=== PATIENT | male | born 1985 | race Caucasian/White ===

== ENCOUNTER 2021-02-25 12:01 | Emergency (ER) | payer MEDICAID, SELFPAY ==
[2021-02-25 12:06] VITALS: BP 187/112; PULSE 77; RESP 20; TEMP 37.1; O2SAT 98
--- NOTE | 2021-02-25 12:15 | RT.EKG_ITS ---
APPROVED REPORT Exam: Resting ECG Patient Location: E HR:60 bpm ECG Measurements Heart Rate 60 AXIS KS 142 P 15 QRSd 102 QRS 72 QT 429 T 43 QTc 429 Conclusion Sinus rhythm...normal P axis, V-rate 60- 99
[2021-02-25] MEDS: OLANZapine 5 MG TAB PO (12:31)
[2021-02-25 12:47] LABS: Abs Immature Grans 0.01 10^3/uL (0.0-0.06); Absolute Basophil Count 0.02 10^3/uL (0.0-0.2); Absolute Lymphocyte Count 0.95 10^3/uL (1.2-3.4); Absolute Monocyte Count 0.28 10^3/uL (0.1-0.8); Basophils % 0.3; HCT 45.3 % (40.0-50.0); HGB 14.7 g/dL (13.5-17.5); Immature Grans % 0.2; Lymphocytes % 14.9; MCHC 32.5 % (32.0-36.0); MCV 83.3 fL (80-95); MPV 9.8 fL (8.0-11.0); Monocytes % 4.4; Neutrophils % 80.2; Nucleated RBC 0 %; Platelet Count 279 10^3/uL (130-400); RBC 5.44 10^6/uL (4.36-5.78); RDW 13.8 % (11.8-14.1); WBC 6.36 10^3/uL (4.4-10.8)
--- NOTE | 2021-02-25 12:52 | ED.GENADUL_ITS ---
Discharge Plan Discharge Details Chief Complaint: PsychEval Primary Care Provider: Kofi Barcenas ED Provider: Amber Corral Home Meds and New Rx's Prescriptions: No Action methylphenidate HCl [Ritalin] 20 mg Tablet 20 mg PO BID RF: 0 buprenorphine-naloxone [Suboxone] 2-0.5 mg Film 1 film BUCCAL DAILY RF: 0 Medical Decision Making Patient initially alert and oriented but very paranoid and tangential I did speak with his Alaina immediately upon arrival and she feels like the patient has become progressively more paranoid and she is worried about his safety He reportedly broke all of his guns in the house and called 911 for help She states that he feels as though family members are trying to harm him and that last evening he mentioned that he was going to kill her and then shoot himself to protect him She states that started approximately 2 weeks ago and has been escalating since discontinuing alcohol on the second Patient initially responded really well to Zyprexa and was resting comfortably in room, after consultation with mental health coordinator, Christen, patient became very agitated and was requesting to be discharged home As patient remained under voluntary status, we are unable to hold patient in the emergency room Please were notified and unfortunately patient was discharged into the community, he was ambulatory with steady gait at time of elopement from the hospital Given concerns for safety of staff in hospital, patient was not restrained Police notified regarding elopement at [address] Case management aware Differential Diagnosis Differential Diagnosis: Delusional, mood disorder, bipolar disorder, polysubstance abuse Medical Records Medical records reviewed: Yes I reviewed the patient's medical records. Lab Data Lab results reviewed: Yes I reviewed the patient's lab results. HPI This 35-year-old male presents with police for evaluation of paranoia and delirium. Patient reportedly stopped consuming alcohol on January 26 and for the past 3 weeks has been paranoid. Patient states that since his gallbladder surgery he is much more clear . He states he is never felt better but states that he thinks people are out to get him and his . He stated that his gave him some medication to help him sleep and he felt like she was poisoning him. states that he has been very paranoid, breaking all of his comments about people are unable to harm them not drinking the water because he states that it contains poison. denies any history of similar presentation in the past. There is no known history of mental health reportedly. Patient does have a history of alcohol abuse. He reportedly drinks 12-24 beers daily until January 26 when he stopped drinking abruptly. Both and patient deny any withdrawal symptoms. Patient smokes marijuana and does use Suboxone. He states that he has a history of oral opiate abuse. He denies any chest pain or shortness of breath. He denies auditory hallucinations. He denies any attempt to harm self today. He denies any thoughts of wanting to hurt himself or others at this time. Please for reportedly concern for their safety given the amount of inpatient presentation. Patient reportedly has not been eating or drinking water. Patient has also not been sleeping. denies any known trauma. General Date/Time Provider Initiated Documentation: 02/25/21 12:04 . Related Data Home Medications Medication Instructions Recorded Confirmed buprenorphine-naloxone [Suboxone] 1 film BUCCAL DAILY 02/25/21 02/25/21 methylphenidate HCl [Ritalin] 20 mg PO BID 02/25/21 02/25/21 Allergies Allergy/AdvReac Type Severity Reaction Status Date / Time No Known Allergies Allergy Unverified 02/25/21 12:11 General Stated Complaint: PsychEval OSCAR: 2 Review of Systems Narrative: Review of systems negative x7 aside from where indicated in HPI [facility] Medical History (Updated 02/25/21 @ 15:22 by Zahra Ferrell) Chronic rhinitis Erectile dysfunction Generalized anxiety disorder GERD (gastroesophageal reflux disease) Hypospadias Surgical History (Updated 02/25/21 @ 15:22 by Zahra Ferrell) History of laparoscopic cholecystectomy 10/16/2020 Social History Smoking/Tobacco Use Status: Former Tobacco Use Smoking risk assessment performed?: Yes Alcohol Intake: former Drug use: Daily Substance use type: marijuana Details: Quite ETOh & tobacco January 26, last marijuna use yesterday Do you feel safe at home: Yes Do you feel safe in your relationship?: Yes Exam Const General: cooperative and no acute distress HENMT Throat: uvula midline Eyes Pupils: PERRL Resp Effort & Inspection: normal respiratory effort Auscultation: clear to auscultation bilaterally Cardio Rate: regular rate Rhythm: regular rhythm Skin General skin exam: no rashes or lesions noted Neuro General: patient alert and patient oriented x3 Cranial Nerves: PERRL Speech: speech normal Other: Ambulatory with steady gait Psych Appearance: well kempt Speech and Movement: agitated Affect: labile affect Attitude: cooperative Judgment: limited Course Vital Signs Vital signs: Vital Signs Temperature 37.1 C 02/25/21 12:06 Pulse 77 02/25/21 12:06 Respiratory Rate 20 02/25/21 12:06 Blood Pressure 187/112 H 02/25/21 12:06 Pulse Oximetry 98 02/25/21 12:06 Temperature 37.1 C 02/25/21 12:06 Temperature Source Oral 02/25/21 12:06 Pulse 77 02/25/21 12:06 Respiratory Rate 20 02/25/21 12:06 Respiratory Effort Non-Labored 02/25/21 12:13 Blood Pressure 187/112 H 02/25/21 12:06 Blood Pressure Position Sitting 02/25/21 12:06 Pulse Oximetry 98 02/25/21 12:06 Oxygen Delivery Method Room Air 02/25/21 12:06 Oxygen Flow Rate 0 02/25/21 12:06 Lab/Test Results Lab/Test Results: Laboratory Tests Range/Units 02/25/21 12:40 WBC (4.4-10.8) 10^3/uL 6.36 RBC (4.36-5.78) 10^6/uL 5.44 Hgb (13.5-17.5) g/dL 14.7 Hct (40.0-50.0) % 45.3 MCV (80-95) fL 83.3 MCH (27.0-33.0) pg 27.0 MCHC (32.0-36.0) % 32.5 RDW (11.8-14.1) % 13.8 Plt Count (130-400) 10^3/uL 279 MPV (8.0-11.0) fL 9.8 Immature Gran % 0.2 Neutrophils % 80.2 Lymphocytes % 14.9 Monocytes % 4.4 Eosinophils % 0.0 Basophils % 0.3 Nucleated RBC % % 0 Absolute Neutrophils (1.2-6.7) 10^3/uL 5.10 Absolute Lymphocytes (1.2-3.4) 10^3/uL 0.95 L Absolute Monocytes (0.1-0.8) 10^3/uL 0.28 Absolute Eosinophils (0.0-0.7) 10^3/uL 0.00 Absolute Basophils (0.0-0.2) 10^3/uL 0.02
--- NOTE | 2021-02-25 13:00 | DI.CT_ITS ---
EXAM: CT HEAD WO CLINICAL HISTORY: paranoia. TECHNIQUE: Imaging Protocol: Axial computed tomography images with coronal and sagittal reformatted images were created and reviewed COMPARISON: No exams were available for comparison FINDINGS: There are no skull fractures nor fluid in the visualized paranasal sinuses. There is no evidence of intracranial hemorrhage, mass effect, or shift of midline structures. There are no extra-axial fluid collections. The ventricles are not enlarged or shifted and there is no blo od within the ventricular system nor within the basal cisterns. IMPRESSION: No acute intracranial findings on this noninfused CT scan of the brain. RADIATION DOSE DELIVERED: 786.23mGy.cm Total DLP DATA REPOSITORY: All CT scans at this facility are submitted to the National Radiology Data Registry (NRDR) Dose Index Registry (DIR) with the [employer] (ACR). RADIATION OPTIMIZATION: All CT scans at this facility use at least one of these dose optimization te chniques: automated exposure control; mA and/or kV adjustment per patient size (includes targeted exa ms where dose is matched to clinical indication); or iterative reconstruction.
[2021-02-25 13:10] LABS: ALT 33 U/L (16-63); AST 14 U/L (15-37); Albumin 4.5 g/dL (3.4-5.0); Alkaline Phosphatase 88 U/L (46-116); Anion Gap 10.3 mmol/L (3-11); BUN 14 mg/dL (7-18); Bilirubin, Total 0.7 mg/dL (0.2-1.0); CO2 27.7 mmol/L (21.0-32.0); CREATININE 0.7 mg/dL (0.70-1.30); Calcium 9.4 mg/dL (8.5-10.1); Chloride 103 mmol/L (98-107); Glucose 91 mg/dL (74-106); Potassium 3.5 mmol/L (3.5-5.1); Sodium 141 mmol/L (136-145); TSH 2.24 uIU/mL (0.36-3.74); Total Protein 8.4 g/dL (6.4-8.2)
[2021-02-25 13:20] LABS: ETHANOL BLOOD < 3.0 mg/dL (<3)
[2021-02-25 13:28] LABS: Bilirubin Small (Negative); Blood Negative (Negative); Clarity Clear (Clear); Glucose Negative (Negative); Ketones >=160 mg/dL (Negative); Leukocyte Esterase Negative (Negative); Nitrite Negative (Negative); Specific Gravity >= 1.030 (1.005-1.025); pH 6.5 (5-8)
[2021-02-25 13:36] LABS: *AMPHETAMINES SCREEN URINE Negative (Negative); *BARBITURATES SCREEN URINE Negative (Negative); *BENZODIAZEPINES SCREEN URINE Negative (Negative); Cannabinoids THC Positive (Negative); Cocaine Screen,Urine Negative (Negative); METHADONE URINE SCREEN Negative (Negative); OPIATES URINE SCREEN Negative (Negative)
[2021-02-25 13:38] LABS: Bacteria Few HPF (Negative); C & S Indicated? No; Casts Negative LPF (Negative); Crystals Negative HPF (Negative); Epithelial Cells Negative HPF (Negative); Mucus Heavy (Negative); Other Cells Negative (Negative); RBC Negative HPF (0-2); WBC 0-2 HPF (0-5)
[2021-02-25 13:43] LABS: Tricyclic Antidepressants Negative (Negative)
--- NOTE | 2021-02-25 15:54 | MHPN_ITS ---
Date of service: 02/25/21 Time of Service: 15:30 Mental Health Crisis Note Presenting Issue How did you arrive at the ED and why did you come: Clt was in ED when I arrived. Clt came to ED because delusional and labile behavior. Precipitating Factors Clt denies any SI or HI. According to [facility] Staff, the clt told her that he planned to kill his and himself to protect them. Clt's thinking was highly tangential. He would change subject mid-sentence. He is very concnerned for his . Clt stated that he did have Covid and recovered but he noted behavior changes. Clt is grandiose and delusional. Disposition BEHAVIOR: He has been cooperative. EYE CONTACT: Eye contact has been good. MOOD: Anixous labile APPETITE: Good SLEEP(trouble falling/staying asleep: Slept for a good hour and half. Plan Clt has agreed to voluntary placement. Since the clt has not exhibited any violent behavior and has cut up his guns plus denies any SI or HI at this time an EE would inappropriate. We will proceed looking for a facility. Clt reacted negatively to placement and changed his mind. Because the clt was not EE able, he left the hospital. Later I met with the clt in my car and he was agreeable for a safety plan and followup treatment. Signature Clinician's Name/Title: Mario Griffin, [facility]
== END 2021-02-25 16:42 | disposition other institution (70) ==
PROVIDERS: Emergency Provider Physician Assistant; PCP Family Medicine
DX: F22 Delusional disorders (principal); Z53.29 Procedure and treatment not carried out because of patient's decision for other reasons
CPT/HCPCS: 80053; 80307; 93005; 99285; 70450; 80320; 81003; 81015; 84443; 85025; 93010; 99283

== ENCOUNTER 2021-02-25 21:10 | Emergency (ER) | payer MEDICAID, SELFPAY ==
--- NOTE | 2021-02-25 21:16 | W.ED.GENAD ---
Discharge Plan Disposition Patient Disposition: OZ RETREAT Condition: Stable Discharge Details Clinical Impression: Manic behavior Primary Care Provider: Kofi Barcenas ED Provider: Ann Marie Pink Home Meds and New Rx's Prescriptions: No Action No Known Home Meds RF: 0 Medical Decision Making <Kandace Barboza - Last Filed: 02/26/21 16:34> 35-year-old male presents to the ED via law enforcement under a warrant and EE. Patient was seen in the emergency department earlier today and assessed by [facility], patient eloped from the department, police were called and brought patient back into the department. From previous record review there is a concern from for some new paranoid psychotic behavior over the last 2 to 3 weeks which has gradually worsened. Reports from patient's and mother were obtained at previous visit. At this time it is a concern for patient safety and the safety of others. Patient is very agitated. He is yelling upon arrival that This is not my problem, this is my 's problem, she is at risk to harm herself not me, I did this for her. Reports from previous visit and Patient's is that he has threatened her and himself, he sawed his guns in half. Patient called Police earlier today because he saw a man across the street. He is willing to change into scrubs and take some Lorazepam. 2200: Huddle performed with care management Pauline Garcia and Keisha with [employer], and another individual performing the 2nd certification. Relayed information from earlier and my current assessment and interaction with patient. Safety plan in place, patient was given food. At this time patient refuses to get into paper scrubs we will continue to encourage changing close. 2337: Patient was given 1 mg of lorazepam p.o. he is currently sleeping, breathing eupneic. CVS so sitter is at bedside for observation. At this time patient is EE'd and is on an involuntary status. Pending placement at this time. 0009: Care is to be handed off to ER attending Jean Paul Delarosa DO pending mental health placement and admission in the morning. At the time of this dictation patient was hemodynamically stable, sleeping. <Abilio Sampson MD - Last Filed: 02/26/21 08:56> Received signout from Dr. Delarosa for the morning of February 26. Huddle performed with care management in mental health. Patient remains on involuntary hold. Is taking morning Zyprexa. At this point has been calm and interactive with staff. Await further disposition at this time. <Ann Marie Pink DO - Last Filed: 02/26/21 15:35> 1500 --please see previous providers notes for initial presentation, exam, plan and course. Case endorsed to follow-up with mental health regarding final disposition. Pt reported to be cooperative today. 1520 --patient accepted to [facility]. Accepting physician Dr. Cee. Pt to go by [facility]. Medical Records Medical records reviewed: Yes I reviewed the patient's medical records. HPI <Kandace Barboza - Last Filed: 02/26/21 16:34> General Mode of arrival: ambulatory. Date/Time Provider Initiated Documentation: 02/25/21 21:13. Information obtained by: patient. HPI Narrative: 35-year-old male presents to the ED via law enforcement under a warrant and EE. Patient was seen in the emergency department earlier today and assessed by [facility], patient eloped from the department, police were called and brought patient back into the department. From previous record review there is a concern from for some new paranoid psychotic behavior over the last 2 to 3 weeks which has gradually worsened. Reports from patient's and mother were obtained at previous visit. At this time it is a concern for patient safety and the safety of others. Patient is very agitated. He is yelling upon arrival that This is not my problem, this is my 's problem, she is at risk to harm herself not me, I did this for her. Reports from previous visit and Patient's is that he has threatened her and himself, he sawed his guns in half. Patient called Police earlier today because he saw a man across the street. He is willing to change into scrubs and take some Lorazepam. Related Data Home Medications Medication Instructions Recorded Confirmed Unknown [No Known Home Meds] 02/26/21 02/26/21 Allergies Allergy/AdvReac Type Severity Reaction Status Date / Time No Known Allergies Allergy Unverified 02/25/21 12:11 General OSCAR: 2 Review of Systems <Kandace Barboza - Last Filed: 02/26/21 16:34> All systems reviewed & are unremarkable except as noted in HPI and below Constitutional Constitutional: Reports as per HPI and Reports other Comments: Agitated, manic behavior, paranoia, delusions, threatening homicide and suicide per and Mother Report. Cardiovascular Cardiovascular: Denies dyspnea Respiratory Respiratory: Reports system reviewed and no additional complaints, except as documented, Denies cough, Denies dyspnea and Denies wheezing Gastrointestinal Gastrointestinal: Reports system reviewed and no additional complaints, except as documented and Denies abdominal pain Musculoskeletal Musculoskeletal: Denies abnormal gait Neurologic Neurologic: Reports as per HPI, Denies abnormal gait and Reports behavioral changes Psychiatric Psychiatric: Reports as per HPI, Reports anxiety, Reports behavioral changes, Reports irritability, Reports mood swings, Reports paranoia, Reports visual hallucinations, Reports homicidal ideation and Reports suicidal ideation Allergic/Immunologic Allergic/Immunologic: Denies wheezing PFSH <Kandace Barboza - Last Filed: 02/26/21 16:34> Medical History (Updated 02/26/21 @ 01:05 by Kandace Barboza) Chronic rhinitis Erectile dysfunction Generalized anxiety disorder GERD (gastroesophageal reflux disease) Hypospadias Surgical History (Updated 02/25/21 @ 15:22 by Zahra Ferrell) History of laparoscopic cholecystectomy 10/16/2020 Social History Smoking/Tobacco Use Status: Former Tobacco Use Smoking risk assessment performed?: Yes Alcohol Intake: former Drug use: Daily Substance use type: marijuana Details: Quite ETOh & tobacco January 26, last marijuna use yesterday Do you feel safe at home: Yes Do you feel safe in your relationship?: Yes Exam <Kandace Barboza - Last Filed: 02/26/21 16:34> Narrative Exam Narrative: Exam limited by patient agitation and mental state. Constitutional: Appears stated age. Well-nourished body habitus. Head: Normocephalic, no trauma. Eyes: Pupils PERRLA, Red reflex noted, EOM's intact. Eyelids symmetrical without lesions, discharge, or swelling. Chest: RRR, Normal S1, S2, distal pulses intact. Resp: Lungs clear to auscultation bilaterally, no wheezes, rales, or rhonchi. Musculoskeletal: Normal gait, 5/5 strength to all four extremities. Skin: No suspicious rashes or lesions. Capillary refill less than 2 sec. Neurologic: Cranial nerves II-XII intact. Hematologic/Lymphatic: No ecchymosis, no lymphadenopathy. Psychiatric: See below Psych Appearance: disheveled Speech and Movement: agitated (Yelling obscenities at staff upon arrival) and restless Mood: anxious mood, manic mood and angry Affect: animated, hostile and irritable affect Thought Process: tangential Thought Content: compulsions, delusions, hallucinations (Reports Seeing people across street, rats, bugs) visual and phobias (Paranoia's, ) Insight: limited Judgment: limited Sign Out <Kandace Barboza - Last Filed: 02/26/21 16:34> Sign Out Data: Sign Out Comment: EE'd Pending placement. History of Paranoid psychosis, delusions, and manic behaviors. Last updated by Kandace Barboza at 02/26/21 01:02 Sign Out Comment: Patient stable throughout the night, patient slept well. No complications. Reassessment by mental health in the morning. Last updated by Vijay Delarosa DO at 02/26/21 07:20 Sign Out Comment: Awaits final disposition Last updated by Abilio Sampson MD at 02/26/21 14:47
[2021-02-25 21:19] VITALS: BP 164/98; PULSE 103; RESP 16; TEMP 36.4; O2SAT 98
[2021-02-25] MEDS: LORazepam 1 MG TAB PO (21:45)
--- NOTE | 2021-02-25 22:13 | PDOC.CMSAFED ---
- If Service Date Differs Date of service: 02/25/21 Time of Service: 22:13 Care Management Safety Plan Status: Involuntary INVOLUNTARY FOR INPATIENT PSYCHIATRIC STABILIZATION. Michel was brought in by [facility] Police earlier today. Per report, he has made statements over the past week regarding SI, HI. Per his , he was seeing rats and bugs in the home that were not there. He recently stopped drinking in January, which he contributes to his new feeling of being awake. He was calm and appropriate for most of the period of observation in the ED awaiting medical clearance. [facility] felt that there was not enough to hold him involuntarily. He became agitated when he was asked to stay for inpatient treatment. PÉREZ called OLEG Carpenter [facility] for a second evaluation. He eloped from the ED before Pauline arrived. Based on the information presented, a warrant was put out for him to return to the ED for emergency evaluation. He arrived hours later via [facility] Police. PÉREZ coordinated a team meeting for second certification with Dr. Curtis MD [facility]; GABRIEL Carpenter; GABRIEL Valdes; and PÉREZ. The second certification was upheld, and Michel will remain at [facility] involuntarily until psychiatric placement is found. Referrals are being sent in the am to [facility], [facility], [facility], [facility]. Safety plan has been established to meet the needs of the patient, and consideration of the care team, to adhere to patient goals, identify restrictions based on behavioral status, address nutrition, and determine allowed personal belongings, tools for hygiene and personal care. Determine level of activity including ambulation, level of supervision, visitors, and determine privileges based on behaviors and level of engagement by pt. SAFETY PLAN: 1. Will remain on SI/HI precautions. In own clothes, will encourage Paper Clothes. 2. Will remain in room under direct supervision of one-on-one staff at all times provided by [employer]; GUR[employer]ET, INTEGRITY SPECIALIST debt and budget counselor. 3. May have paper cups, plates, finger foods as well as a cardboard spoon 4. Follow [facility] Management of the Admitted Behavioral Health Patient policy. 5. Comfort bath system only. 6. Personal belongings- currently has own phone, will encourage phone calls via hospital phone 7. Visitors: No visitors at this time due to Covid 19 policy. 8. Activities: soft cart items, at RN discretion. 9. Bathroom privileges with supervision 10. Phone: phone calls to family, at RN discretion. 11. Due to INVOLUNTARY status, patient is being held at [facility] by the Department of Mental Health ([facility]) until 2nd certification by [facility] Psychiatrist can be performed (within 24 hours). Staff will provide de-escalation support (CPI) as needed. If patient wishes to leave [facility], staff will contact [facility] Crisis Screener ([phone]) and On-Call Cookie Padder ([phone]) as soon as possible. In the event of elopement, notify [facility] Police ([phone]). Patient is currently involuntarily at [facility]. [facility] Frontline Dredge Runner will continue seeking placement. Please contact the Mail Agent Cookie Padder ([phone]) for any needed changes to Safety Plan. Safety plan has been provided to interdepartmental care team. Patient will be transported by ship fastener at time of discharge.
[2021-02-26] MEDS: OLANZapine 10 MG TAB PO (08:10)
[2021-02-26 08:16] LABS: Source Nasal/Nares
--- NOTE | 2021-02-26 08:57 | CMSP_ITS ---
- If Service Date Differs Date of service: 02/26/21 Time of Service: 08:57 Care Management Safety Plan Status: Involuntary INVOLUNTARY FOR INPATIENT PSYCHIATRIC STABILIZATION. Safety plan has been established to meet the needs of the patient, and consideration of the care team, to adhere to patient goals, identify restrictions based on behavioral status, address nutrition, and determine allowed personal belongings, tools for hygiene and personal care. Determine level of activity including ambulation, level of supervision, visitors, and determine privileges based on behaviors and level of engagement by pt. CM coordinated a huddle with Pauline [facility] Crisis Screener, Dr. Sampson, ED Provider, Leslie, Nursing Supervisor Acoustical Tile Carpenters, Zahra, Charge Nurse, Payal, RN, Shelli, RN, Naif, materials planner/production planner, and Nery, Pit Shoveler, at approximately 9:00 am. SAFETY PLAN: 1. Will remain on SI/HI precautions. In own clothes, will encourage Paper Clothes. 2. Will remain in room under direct supervision of one-on-one staff at all times provided by [employer], GURMEET, ELECTRONICS ASSEMBLER senior web engineer. 3. May have paper cups, plates, finger foods as well as a cardboard spoon 4. Follow [facility] Management of the Admitted Behavioral Health Patient policy. 5. Comfort bath system only. 6. No personal belongings. 7. Visitors: No visitors at this time per [facility] Covid policy. 8. Activities: soft cart items and other activities at RN discretion. 9. Bathroom privileges with supervision. 10. Phone: May use hospital phone to make phone calls to family with supervision and at RN discretion. 11. Due to INVOLUNTARY status, patient is being held at [facility] by the Department of Mental Health (DM) until 2nd certification by [facility] Psychiatrist can be performed (within 24 hours). Staff will provide de-escalation support (CPI) as needed. If patient wishes to leave [facility], staff will contact [facility] Crisis Screener ([phone]) and On-Call Pit Shoveler ([phone]) as soon as possible. In the event of elopement, notify [place] [employer] Police ([phone]). Patient is currently involuntarily at [facility]. [facility] Frontline Entry Level Programmer will continue seeking placement. Please contact the Signal Technician Pit Shoveler ([phone]) for any needed changes to Safety Plan. Safety plan has been provided to interdepartmental care team. Patient will be transported by [facility] at time of discharge.
--- NOTE | 2021-02-26 08:57 | NUR.NOTE ---
Nursing Note: Saul zuniga called to verify information. MG
--- NOTE | 2021-02-26 08:57 | PDOC.CMSAFED ---
- If Service Date Differs Date of service: 02/26/21 Time of Service: 08:57 Care Management Safety Plan Status: Involuntary INVOLUNTARY FOR INPATIENT PSYCHIATRIC STABILIZATION. Safety plan has been established to meet the needs of the patient, and consideration of the care team, to adhere to patient goals, identify restrictions based on behavioral status, address nutrition, and determine allowed personal belongings, tools for hygiene and personal care. Determine level of activity including ambulation, level of supervision, visitors, and determine privileges based on behaviors and level of engagement by pt. CM coordinated a huddle with Pauline [facility] Crisis Screener, Dr. Sampson, ED Provider, Leslie, Nursing Aquacultural Worker Supervisor, Zahra, Charge Nurse, Payal, RN, Shelli, RN, Naif, supervisor cutting and boning, and Nery, Physical Therapy Aide, at approximately 9:00 am. SAFETY PLAN: 1. Will remain on SI/HI precautions. In own clothes, will encourage Paper Clothes. 2. Will remain in room under direct supervision of one-on-one staff at all times provided by CPSO, GURMEET, ADJUSTMENT EXAMINER dog obedience instructor. 3. May have paper cups, plates, finger foods as well as a cardboard spoon 4. Follow [facility] Management of the Admitted Behavioral Health Patient policy. 5. Comfort bath system only. 6. No personal belongings. 7. Visitors: No visitors at this time per [facility] Covid policy. 8. Activities: soft cart items and other activities at RN discretion. 9. Bathroom privileges with supervision. 10. Phone: May use hospital phone to make phone calls to family with supervision and at RN discretion. 11. Due to INVOLUNTARY status, patient is being held at [facility] by the Department of Mental Health (DM) until 2nd certification by [facility] Psychiatrist can be performed (within 24 hours). Staff will provide de-escalation support (CPI) as needed. If patient wishes to leave [facility], staff will contact [facility] Crisis Screener ([phone]) and On-Call Physical Therapy Aide ([phone]) as soon as possible. In the event of elopement, notify [employer] Police ([phone]). Patient is currently involuntarily at [facility]. [facility] Frontline Tightening Machine Operator will continue seeking placement. Please contact the Payroll Services Analyst Physical Therapy Aide ([phone]) for any needed changes to Safety Plan. Safety plan has been provided to interdepartmental care team. Patient will be transported by [facility] at time of discharge.
--- NOTE | 2021-02-26 08:59 | NUR.NOTE ---
Nursing Note: Pt was woken up at 0810 and medicated with zyprexa PO as ordered. Pt was polite, cooperative, and calm. Offered breakfast, pt ordered a breakfast sandwich and ate. Offered fluids, pt declined stating he still had fluids in his coffee cup from last night. Huddle completed with , Care Managment, Nursing Traffic Representative. CPSO in place.
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
[2021-02-26 09:36] VITALS: BP 146/89; PULSE 60; RESP 18; TEMP 36.7; O2SAT 96
[2021-02-26 10:06] LABS: COVID-19 PCR Negative (Negative)
--- NOTE | 2021-02-26 11:08 | NUR.NOTE ---
had called patient. She was very upset by information she was told. was upsetting the patient. I spoke with the . She stated she needed the patient to help her with ADLs. I advised the and patient that I would reach out to CM and patient's [facility] worker, Pauline.I made Nery ORTEZ and Dr. Sampson aware of the situation.
--- NOTE | 2021-02-26 15:36 | NUR.NOTE ---
Nursing Note: Pt had reported on admission to ED that Ritalin and Suboxone were prescribed and active home medications. External medication records were reviewed and these medications were not prescribed, pt states that he was buying them off the street. UA negative, medications were removed from his home medication list.
[2021-02-26 16:12] VITALS: BP 148/84; PULSE 47; RESP 20; TEMP 36.4; O2SAT 98
== END 2021-02-26 16:18 | disposition short-term general hospital (02) ==
PROVIDERS: Registered Nurse Emergency; Emergency Provider Physician Assistant; PCP Family Medicine
DX: F22 Delusional disorders (principal); R41.0 Disorientation, unspecified; Z53.29 Procedure and treatment not carried out because of patient's decision for other reasons
CPT/HCPCS: 36415; 87635; 99285; 99284